=== PATIENT | female | born 1990 | race Caucasian/White ===

== ENCOUNTER 2016-09-07 19:12 | Emergency (ER) | payer OTHER ==
[~2016-09-07] VITALS: Ht 170.2 cm; Wt 102.1 kg
[2016-09-07 20:42] VITALS: BP 148/96
== END 2016-09-07 20:44 | disposition home or self-care (01) ==
LOC: ER 19:12
DX: S93.402A Sprain of unspecified ligament of left ankle, initial encounter (principal); Z91.041 Radiographic dye allergy status; X58.XXXA Exposure to other specified factors, initial encounter; Y93.89 Activity, other specified; Y92.89 Other specified places as the place of occurrence of the external cause; Y99.9 Unspecified external cause status